=== PATIENT | female | born 1985 | race Caucasian/White ===

== ENCOUNTER → 2021-11-22 | Outpatient (CLI) | payer BC ==
--- NOTE | 2021-11-22 17:26 | Diagnostic Imaging Report ---
INDICATION: Low back pain AP and lateral views of the lumbar spine are obtained. Lumbar spinal curvature and alignment are unremarkable. Vertebral body heights and disc spaces are maintained. Punctate calcification projects over the lower pole of the right kidney. Metallic objects project over the lower pelvis on the AP view, likely related to clothing. IMPRESSION: No acute lumbar spinal abnormality. There is probable non-obstructing right lower pole nephrolithiasis. Dictated by: Dictated on workstation # [id number]
== END ==
LOC: RAD 16:03
PROVIDERS: ATTEND Chiropractor
DX: M54.50 Low back pain, unspecified (principal)
CPT/HCPCS: 72100